=== PATIENT | male | born 1985 | race Caucasian/White ===

== ENCOUNTER 2018-08-01 22:28 | Emergency (ER) | payer BC ==
--- NOTE | 2018-08-01 22:47 | EDM.PDOC ---
ED HPI GENERAL MEDICAL PROBLEM - General Chief Complaint: Trauma Stated Complaint: NOSE AND HEAD INJURY Time Seen by Provider: 08/01/18 22:29 Source of Information: Reports: Patient, Family (Father) History Limitations: Reports: Altered Mental Status - History of Present Illness INITIAL COMMENTS - FREE TEXT/NARRATIVE: According to the patient's father, who did not witness the injury, the patient was carving a piece of wood on a lathe at home, when the wood broke loose, striking the patient on his nose, around 22:00 tonight. The patient presents with blood on his face and some confusion - he is amnestic of recent events, including his recent wedding. He is otherwise uninjured. The patient does not recall when his last tetanus vaccination was. The patient's PCP is Dr. Adalid Granados. Face Pain Score (Numeric/FACES): 8 - Related Data Allergies Allergy/AdvReac Type Severity Reaction Status Date / Time No Known Allergies Allergy Verified 09/08/16 23:33 Home Meds: Home Meds . [No Known Home Meds] 09/08/16 [History] Past Medical History - Past Surgical History Musculoskeletal Surgical History: Reports: Arthroscopic Procedure (right knee) Social & Family History - Family History Family Medical History: Noncontributory - Tobacco Use Smoking Status *Q: Current Every Day Smoker Packs/Tins Daily: 0.5 - Caffeine Use Caffeine Use: Reports: Coffee - Alcohol Use Alcohol Use History: Yes Date/Time of Last Drink Comment: Alcoholic, in recovery since 2016 - Recreational Drug Use Recreational Drug Use: No - Living Situation & Occupation Living situation: Reports: , with Spouse Occupation: Employed ([employer]) Review of Systems - Review of Systems Review Of Systems: ROS reveals no pertinent complaints other than HPI. ED EXAM, GENERAL - Physical Exam Exam: See Below Exam Limited By: No Limitations General Appearance: Alert, WD/WN, No Apparent Distress Eye Exam: Bilateral Eye: EOMI, Papilledema Ears: Normal External Exam, Hearing Grossly Normal Nose: Other (There is a curvilinear superficial laceration to the superior aspect across the bridge of the patient's nose, and approximately 1 cm linear laceration running along axis of the bridge of the patient's nose. There appears to be an abrasion to the right side of the patient's nose. No nasal bone tenderness.) Throat/Mouth: Normal Teeth, Normal Gums, Normal Oropharynx, Normal Voice, No Airway Compromise, Other (There is an approximately 1 cm [id number] laceration to the center of the patient's upper lip) Head: Atraumatic, Normocephalic Neck: Normal Inspection, Supple, Non-Tender, Full Range of Motion Respiratory/Chest: No Respiratory Distress, Lungs Clear, Normal Breath Sounds, No Accessory Muscle Use Cardiovascular: Normal Peripheral Pulses, Regular Rate, Rhythm, No Edema, No Gallop, No JVD, No Murmur, No Rub Peripheral Pulses: 4+: Radial (L), Radial (R) GI/Abdominal: Normal Bowel Sounds, Soft, Non-Tender, No Organomegaly, No Distention, No Abnormal Bruit, No Mass (Male) Exam: Deferred Rectal (Males) Exam: Deferred Back Exam: Normal Inspection, Full Range of Motion, NT Extremities: Normal Inspection, Normal Range of Motion, No Pedal Edema, Normal Capillary Refill Neurological: Alert, CN II-XII Intact, No Motor/Sensory Deficits, Confused ( Perseverates questions), Memory Loss Recent Events Psychiatric: Normal Affect Skin Exam: Warm, Dry, Intact, Normal Color, No Rash ED TRAUMA PROCEDURES - Laceration/Wound Repair Middle Face Lac/Wound Length In cm: 2.0 Appearance: Subcutaneous, Irregular, Clean Distal NVT: Neuro & Vascular Intact, No Tendon Injury Anesthetic Type: Local (LET) Local Anesthesia - Lidocaine (Xylocaine): 1% with EPI Local Anesthesia - Bupivicaine (Marcaine): 0.5% Plain Local Anesthetic Volume: 2cc Skin Prep: Providone-Iodine (Betadine) Exploration/Debridement/Repair: Wound Explored, In a Bloodless Field, Explored to Base, No Foreign Material Found, Wound Margins Revised Closed With: Sutures Suture Size: 2-0 # of Sutures: 4 Suture Type: Prolene, Interrupted, Simple Drain Placement: No Sterile Dressing Applied: None Tetanus Status Addressed: Yes Complications: No Course - Vital Signs Last Recorded V/S: Last Vital Signs Temp 36.6 C 08/02/18 01:15 Pulse 93 08/02/18 01:15 Resp 17 08/02/18 01:15 BP 151/80 H 08/02/18 01:15 Pulse Ox 97 08/02/18 01:15 - Orders/Labs/Meds Orders: Active Orders 24 hr Category Date Time Status Vaccines to be Administered [RC] PER UNIT ROUTINE Care 08/02/18 01:00 Active Head wo Cont [CT] Stat Exams 08/01/18 22:38 Taken Meds: Medications Discontinued Medications Generic Name Dose Route Start Last Admin Trade Name Tayler PRN Reason Stop Dose Admin Bupivacaine HCl 10 ml 08/02/18 00:33 08/02/18 00:45 Sensorcaine-Mpf 0.5% INJECT 08/02/18 00:34 10 ml ONETIME ONE Administration Diphtheria/Tetanus/Acell Pertussis 0.5 ml 08/02/18 01:00 08/02/18 01:07 Adacel IM 08/02/18 01:01 0.5 ml .ONCE ONE Administration Ibuprofen 600 mg 08/01/18 23:37 08/01/18 23:39 Motrin PO 08/01/18 23:38 600 mg ONETIME ONE Administration Lidocaine/Epinephrine 20 ml 08/02/18 00:33 08/02/18 00:45 Xylocaine 1% With Epinephrine 1:100,000 INJECT 08/02/18 00:34 20 ml ONETIME ONE Administration Lidocaine/Tetracaine 1 ml 08/01/18 23:25 08/01/18 23:34 Let Soln TOP 08/01/18 23:26 1 ml ONETIME ONE Administration - Re-Assessments/Exams Free Text/Narrative Re-Assessment/Exam: 08/01/18 22:39 Due to the patient's altered mental status, I have ordered a CT of the patient' s head. 08/01/18 23:23 CT of head without contrast is read by [facility] as "Normal head/brain CT." 08/01/18 23:25 I have ordered topical LET, to be applied to the lacerations on the patient's nose. 08/02/18 01:12 The patient received good anesthesia to the laceration on the bridge of his nose with topical LET. 2 simple interrupted sutures were placed using 2-0 Prolene. The patient received inadequate anesthesia to the laceration on his upper lip, therefore a 50:50 admixture of lidocaine 1% with epinephrine and bupivacaine 0.5 % without epinephrine was instilled into the wound. Once adequate anesthesia was attained, 2 simple interrupted sutures were placed using 2-0 Prolene. The patient tolerated these procedures well. Topical bacitracin was applied to the abrasion on the right side of the patient' s nose. The patient will receive a tetanus vaccination during this ED visit. Clinically, the patient has a concussion. I explained to the patient's father that the patient will need to undergo brain rest over the next several days, then follow-up with his PCP, Dr. Adalid Granados, at the next available appointment. I do not want the patient of return to work until cleared by Dr. Granados. The patient's father stated that he would be able to stay with his son, to check on him. The patient can therefore be discharged home. Departure - Departure Time of Disposition: 01:16 Disposition: Home, Self-Care 01 Condition: Fair Clinical Impression: Concussion, Laceration of nose, Laceration of upper lip with complication - Discharge Information *PRESCRIPTION DRUG MONITORING PROGRAM REVIEWED*: Not Applicable *COPY OF PRESCRIPTION DRUG MONITORING REPORT IN PATIENT NEREIDA: Not Applicable Instructions: Laceration Care, Adult, Concussion, Adult Referrals: Adalid Granados Jr, MD [Ordering Only Provider] - Forms: ED Department Discharge Additional Instructions: Jac was seen in the emergency room after a piece of wood came loose from a lathe and struck him in the face. Workup in the ER included a CT scan of his head, which was normal. Lacerations to the bridge of his nose and upper lip were sutured with a total of 4 sutures. Jac will need to keep the wounds clean with ordinary soap and water when he bathes. He should pat the wounds dry, then leave alone. They do not need to be covered with a Band-Aid. The abrasion to the right side of his nose should have a thin smear of bacitracin applied to it daily. The sutures should be ready for removal on 08/12/2018. This can be done at a walk-in clinic, by a nurse at Dr. Granados's office, or in the ER. We do not recommend that they be removed by a non-medically trained person. Clinically, Jac has a concussion. Current guidelines recommend that he be given brain rest for the next few days. This means that he should sleep as much as possible in a dark, quiet place, with minimal stimulation. This means no reading, no cell phones, no television, and no visitors. He does not need to be woken up, however, someone should be available to check on him every few hours. If his neurologic condition declines, he should be brought back to the ER for reevaluation. Jac should follow-up with his PCP, Dr. Adalid Granados, at the next available appointment. He should not return to work until cleared to do so by Dr. Granados. - My Orders Last 24 Hours: My Active Orders 08/01/18 22:38 Head wo Cont [CT] Stat 08/02/18 01:00 Vaccines to be Administered [RC] PER UNIT ROUTINE - Assessment/Plan Last 24 Hours: My Active Orders 08/01/18 22:38 Head wo Cont [CT] Stat 08/02/18 01:00 Vaccines to be Administered [RC] PER UNIT ROUTINE
[2018-08-01] MEDS ORDERED: Lidocaine/EPINEPHrine/Tetracaine Soln 1 ML TOP ONE (23:25)
[2018-08-01] MEDS ORDERED: Ibuprofen 600 MG Tab PO ONE (23:37)
[2018-08-02] MEDS ORDERED: Lidocaine 1% with EPINEPHrine 1:100,000 20 ML MDV INJECT ONE (00:33)
[2018-08-02] MEDS ORDERED: Bupivacaine 0.5% 10 ML SDV INJECT ONE (00:33)
[2018-08-02] MEDS ORDERED: Diphtheria,Pertussis(Acell),Tetanus Vaccine 0.5 ML SDV IM ONE (01:00)
[2018-08-02 01:16] VITALS: BP 151/80
--- NOTE | 2018-08-03 07:13 | CT ---
Head CT Technique: Multiple axial sections through the brain were obtained. Intravenous contrast was not utilized. Comparison: No previous intracranial imaging. Findings: Ventricles along with basal cisterns and sulci over the convexities are within normal limits for the patient's age. No abnormal parenchymal densities are seen. No evidence of intracranial hemorrhage. No midline shift or mass effect is seen. Bone window settings were reviewed which show the visualized sinuses to appear clear. No acute calvarial abnormality is seen. Impression: 1. Nothing acute is appreciated on noncontrast head CT study. Diagnostic code #1 I agree with preliminary report from [facility], finalized on 08/02/18, 12:15 AM Central Time
== END 2018-08-02 01:41 | disposition home or self-care (01) ==
LOC: JD.ED 22:28
DX: S06.0X9A Concussion with loss of consciousness of unspecified duration, initial encounter (principal); S01.21XA Laceration without foreign body of nose, initial encounter; S01.511A Laceration without foreign body of lip, initial encounter; F17.210 Nicotine dependence, cigarettes, uncomplicated; Z23 Encounter for immunization; W22.8XXA Striking against or struck by other objects, initial encounter
CPT/HCPCS: 12011; 70450; 90471; 90715; 99284; A9270; J3490

== ENCOUNTER 2019-09-18 14:02 | Emergency (ER) | payer BC ==
[2019-09-18 14:10] VITALS: BP 154/89; PULSE 70
--- NOTE | 2019-09-18 14:26 | EDM.PDOC ---
ED HPI GENERAL MEDICAL PROBLEM - General Chief Complaint: Cardiovascular Problem Stated Complaint: HIGH BP/DIZZINESS Time Seen by Provider: 09/18/19 14:04 Source of Information: Reports: Patient, Family History Limitations: Reports: No Limitations - History of Present Illness INITIAL COMMENTS - FREE TEXT/NARRATIVE: patient woke up this morning with his right arm feeling numb. He then had some mild upset stomach nauseated but no vomiting. He then felt generally weak and tired. He felt somewhat "out of it". Has a history of migraine headaches and has been doing better after some physical therapy and occipital nerve block therapies. He presents now as his symptoms seemed to gotten worse. His blood pressures been more elevated and felt more lightheaded and near faint, near syncopal. Developed sweats and he'll feeling more pale. No fevers or chills. No coughing or cold symptoms. No swallowing problems. No palpitations. No abdominal pain. No burning pain or blood in the urine. No large abida-swelling, no PE risk factors. Patient does relate but does not smoke, denies history of high blood pressure elevated cholesterol diabetes. Family history is positive for both mother and father with diabetes grandparent with heart disease Onset: Today Duration: Hour(s):, Intermittent, Waxing/Waning Location: Reports: Chest, Upper Extremity, Left Severity: Moderate Improves with: Reports: None Worsens with: Reports: None Associated Symptoms: Reports: Confusion, Diaphoresis. Denies: Chest Pain, Cough , Fever/Chills, Headaches, Loss of Appetite, Nausea/Vomiting, Shortness of Breath, Syncope - Related Data Allergies Allergy/AdvReac Type Severity Reaction Status Date / Time No Known Allergies Allergy Verified 09/18/19 14:12 Home Meds: Home Meds Zomig. 09/18/19 [History] Past Medical History - Past Health History Medical/Surgical History: Denies Medical/Surgical History - Past Surgical History Musculoskeletal Surgical History: Reports: Arthroscopic Procedure Social & Family History - Family History Family Medical History: Noncontributory - Caffeine Use Caffeine Use: Reports: Coffee - Recreational Drug Use Recreational Drug Use: No - Living Situation & Occupation Living situation: Reports: , with Spouse Occupation: Employed ([employer]) ED ROS GENERAL - Review of Systems Review Of Systems: See Below Constitutional: Reports: Diaphoresis, Decreased Appetite. Denies: Fever, Chills HEENT: Reports: Vision Change. Denies: Ear Discharge Respiratory: Denies: Shortness of Breath, Pleuritic Chest Pain, Cough Cardiovascular: Reports: Blood Pressure Problem, Lightheadedness. Denies: Chest Pain, Dyspnea on Exertion, Orthopnea, PND, Syncope Endocrine: Reports: Fatigue GI/Abdominal: Reports: Nausea. Denies: Abdominal Pain, Diarrhea, Vomiting : Denies: Dysuria, Hematuria, Incontinence Musculoskeletal: Denies: Neck Pain, Arm Pain Skin: Reports: Pallor, Diaphoresis. Denies: Cyanosis, Rash Neurological: Reports: Confusion, Dizziness, Numbness. Denies: Headache, Seizure, Trouble Speaking, Difficulty Walking, Weakness, Change in Speech, Gait Disturbance Psychiatric: Reports: No Symptoms. Denies: Agitation, Depression, Hallucinations ED EXAM, GENERAL - Physical Exam Exam: See Below Exam Limited By: No Limitations General Appearance: Alert, WD/WN, No Apparent Distress, Mild Distress Eye Exam: Bilateral Eye: EOMI, PERRL Throat/Mouth: Normal Inspection, Normal Lips, Normal Oropharynx Head: Atraumatic, Normocephalic Neck: Normal Inspection, Supple, Non-Tender, Full Range of Motion. No: Carotid Bruit, Thyromegaly Respiratory/Chest: No Respiratory Distress, Lungs Clear, Normal Breath Sounds, No Accessory Muscle Use, Chest Non-Tender Cardiovascular: Normal Peripheral Pulses, Regular Rate, Rhythm, No Edema, No Gallop, No JVD, No Murmur, No Rub GI/Abdominal: Normal Bowel Sounds, Soft, Non-Tender, No Organomegaly, No Distention, No Abnormal Bruit, No Mass Extremities: Normal Inspection, Normal Range of Motion, No Pedal Edema, Normal Capillary Refill Neurological: Alert, Oriented, CN II-XII Intact, No Motor/Sensory Deficits Skin Exam: Cool, Diaphoretic Lymphatic: No Adenopathy EKG INTERPRETATION EKG Date: 09/18/19 Time: 15:26 Rhythm: NSR EKG Interpretation Comments: essentially rate 67 FL 155 QRS is 90 daily crit 12/14/24, some baseline artifact, no acute ST changes. No acute ischemic changes. 1437 repeat EKG: sinus rhythm rate of 72 FL 172 QRS 89 QT corrected 4:15, normal EKG no acute findings. Course - Vital Signs Text/Narrative:: examination, EKG, monitoring, chest x-ray, troponin, labs, d-dimer, I presents to rule out acute coronary syndrome, seems unlikely pulmonary embolism with no risk factors, rule out blood sugar abnormality, anemia, infection or otheretiologies Last Recorded V/S: Last Vital Signs Temp 96.6 F 09/18/19 14:09 Pulse 70 09/18/19 14:09 Resp 19 09/18/19 14:09 BP 154/89 H 09/18/19 14:09 Pulse Ox 100 09/18/19 14:09 - Orders/Labs/Meds Orders: Active Orders 24 hr Category Date Time Status Cardiac Monitoring [RC] . DIRECTED Care 09/18/19 14:15 Active EKG Documentation Completion [RC] ASDIRECTED Care 09/18/19 14:12 Active EKG Documentation Completion [RC] STAT Care 09/18/19 14:31 Active Chest 1V Frontal [CR] Stat Exams 09/18/19 14:31 Taken UA W/MICROSCOPIC [URIN] Stat Lab 09/18/19 14:31 Ordered EKG 12 Lead [EK] Stat Ther 09/18/19 14:12 Ordered Labs: Laboratory Tests 09/18/19 09/18/19 09/18/19 Range/Units 14:10 14:10 14:10 WBC 6.19 (4.23-9.07) K/mm3 RBC 5.46 (4.63-6.08) M/mm3 Hgb 14.9 (13.7-17.5) gm/dl Hct 45.1 (40.1-51.0) % MCV 82.6 (79.0-92.2) fl MCH 27.3 (25.7-32.2) pg MCHC 33.0 (32.2-35.5) g/dl RDW Std Deviation 42.2 (35.1-43.9) fL Plt Count 294 (163-337) K/mm3 MPV 10.4 (9.4-12.3) fl Neutrophils % (Manual) 68 H (40-60) % Band Neutrophils % 0 (0-10) % Lymphocytes % (Manual) 29 (20-40) % Atypical Lymphs % 0 % Monocytes % (Manual) 0 L (2-10) % Eosinophils % (Manual) 2 (0.8-7.0) % Basophils % (Manual) 1 (0.2-1.2) Platelet Estimate Adequate RBC Morph Comment Normal D-Dimer, Quantitative (0.19-0.50) mg/L Sodium 145 (136-145) mEq/L Potassium 3.8 (3.5-5.1) mEq/L Chloride 106 (98-107) mEq/L Carbon Dioxide 28 (21-32) mEq/L Anion Gap 14.8 (5-15) BUN 11 (7-18) mg/dL Creatinine 1.1 (0.7-1.3) mg/dL Est Cr Clr Drug Dosing 102.88 mL/min Estimated GFR (MDRD) > 60 (>60) mL/min BUN/Creatinine Ratio 10.0 L (14-18) Glucose 78 (74-106) mg/dL Calcium 9.0 (8.5-10.1) mg/dL Total Bilirubin 0.3 (0.2-1.0) mg/dL AST 24 (15-37) U/L ALT 60 (16-63) U/L Alkaline Phosphatase 71 (46-116) U/L Troponin I < 0.017 (0.00-0.056) ng/mL NT-Pro-B Natriuret Pep 11 (0-125) pg/mL Total Protein 8.2 (6.4-8.2) g/dl Albumin 4.4 (3.4-5.0) g/dl Globulin 3.8 gm/dL Albumin/Globulin Ratio 1.2 (1-2) 09/18/19 Range/Units 14:10 WBC (4.23-9.07) K/mm3 RBC (4.63-6.08) M/mm3 Hgb (13.7-17.5) gm/dl Hct (40.1-51.0) % MCV (79.0-92.2) fl MCH (25.7-32.2) pg MCHC (32.2-35.5) g/dl RDW Std Deviation (35.1-43.9) fL Plt Count (163-337) K/mm3 MPV (9.4-12.3) fl Neutrophils % (Manual) (40-60) % Band Neutrophils % (0-10) % Lymphocytes % (Manual) (20-40) % Atypical Lymphs % % Monocytes % (Manual) (2-10) % Eosinophils % (Manual) (0.8-7.0) % Basophils % (Manual) (0.2-1.2) Platelet Estimate RBC Morph Comment D-Dimer, Quantitative < 0.19 L (0.19-0.50) mg/L Sodium (136-145) mEq/L Potassium (3.5-5.1) mEq/L Chloride (98-107) mEq/L Carbon Dioxide (21-32) mEq/L Anion Gap (5-15) BUN (7-18) mg/dL Creatinine (0.7-1.3) mg/dL Est Cr Clr Drug Dosing mL/min Estimated GFR (MDRD) (>60) mL/min BUN/Creatinine Ratio (14-18) Glucose (74-106) mg/dL Calcium (8.5-10.1) mg/dL Total Bilirubin (0.2-1.0) mg/dL AST (15-37) U/L ALT (16-63) U/L Alkaline Phosphatase (46-116) U/L Troponin I (0.00-0.056) ng/mL NT-Pro-B Natriuret Pep (0-125) pg/mL Total Protein (6.4-8.2) g/dl Albumin (3.4-5.0) g/dl Globulin gm/dL Albumin/Globulin Ratio (1-2) Meds: Medications Discontinued Medications Generic Name Dose Route Start Last Admin Trade Name Freq PRN Reason Stop Dose Admin Sodium Chloride 500 mls @ 500 mls/hr 09/18/19 14:33 09/18/19 14:38 Normal Saline IV 09/18/19 15:32 500 mls/hr .BOLUS ONE Administration - Radiology Interpretation Free Text/Narrative:: chest x-ray shows normal cardiac silhouette, no pleural effusion, no infiltrate , no acute findings - Re-Assessments/Exams Free Text/Narrative Re-Assessment/Exam: 09/18/19 15:30 patient resting comfortably, no more diaphoresis or pale appearance. No symptoms at present. Repeat EKG was normal, chest x-ray is normal, troponin negative, chemistry panel so far negative. Free Text/Narrative Re-Assessment/Exam: 09/18/19 16:28 patient is doing well, d-dier negative no risk factors doubt PE, blood pressure running about 130/85, do not feel it is any indication for starting any bloessure medication although there is a high blood pressure history in the family and recommend that he follow up with his primary care doctor Darwin. May be some orthostasis and was given some IV fluids and his coloris much improved. Wonder whether he may have had similar reaction from the meal he ate. He ate Capt. crunch with cream and not long after symptoms some of the symptoms started to occur. We'll recommend patient follow-up, given return precautions. Departure - Departure Time of Disposition: 16:29 Disposition: Home, Self-Care 01 Condition: Good Clinical Impression: Lightheadedness, Elevated blood pressure reading Instructions: Dizziness, [id number], How to Take Your Blood Pressure Referrals: Adalid Granados Jr, MD [Primary Care Provider] - Forms: ED Department Discharge Additional Instructions: follow-up with Dr. Granados this coming week. Avoid excessive salt intake, avoid excessive sugar in your diet. Return if any chest pain, shortness of breath, recurrent dizziness, feeling faint or lightheaded or having sweats and weakness. - My Orders Last 24 Hours: My Active Orders 09/18/19 14:12 EKG Documentation Completion [RC] ASDIRECTED EKG 12 Lead [EK] Stat 09/18/19 14:15 Cardiac Monitoring [RC] . DIRECTED 09/18/19 14:31 EKG Documentation Completion [RC] STAT Chest 1V Frontal [CR] Stat UA W/MICROSCOPIC [URIN] Stat - Assessment/Plan Last 24 Hours: My Active Orders 09/18/19 14:12 EKG Documentation Completion [RC] ASDIRECTED EKG 12 Lead [EK] Stat 09/18/19 14:15 Cardiac Monitoring [RC] . DIRECTED 09/18/19 14:31 EKG Documentation Completion [RC] STAT Chest 1V Frontal [CR] Stat UA W/MICROSCOPIC [URIN] Stat
[2019-09-18] MEDS ORDERED: Sodium Chloride 0.9% 500 ML IV ONE (14:33)
--- NOTE | 2019-09-19 16:01 | CR ---
Chest: Portable view of the chest was obtained. Comparison: No prior chest x-ray. Heart size and mediastinum are normal. Lungs are clear. Bony structures are grossly intact. Impression: 1. Nothing acute is seen on portable chest x-ray. Diagnostic code #1
== END 2019-09-18 16:39 | disposition home or self-care (01) ==
LOC: JD.ED 14:02
DX: R42 Dizziness and giddiness (principal); R03.0 Elevated blood-pressure reading, without diagnosis of hypertension
CPT/HCPCS: 36415; 71045; 80053; 83880; 84484; 85007; 85027; 85379; 93005; 96360; 99284; J7040; 93010

== ENCOUNTER 2021-12-12 13:07 | Emergency (ER) | payer BC ==
[2021-12-12 13:51] VITALS: BP 156/89; PULSE 87
== END 2021-12-12 14:40 | disposition home or self-care (01) ==
LOC: JD.ED 13:07
DX: F28 Other psychotic disorder not due to a substance or known physiological condition (principal); Z87.891 Personal history of nicotine dependence
CPT/HCPCS: 99282; 99283

== ENCOUNTER 2023-12-24 22:24 | Emergency (ER) | payer BC ==
[2023-12-24] MEDS: diphenhydrAMINE 50 MG/ML SDV IM ONE (23:27)
[2023-12-24] MEDS: methylPREDNISolone Sodium Succinate 125 MG/2 ML SDV IM ONE (23:27)
[2023-12-24] MEDS: Famotidine 10 MG Tab PO ONE (23:28)
[2023-12-24] MEDS: Triamcinolone Acetonide 0.1% Crm 15 GM Tube TOP ONE (23:30)
[2023-12-25 00:45] VITALS: BP 143/87; PULSE 76
== END 2023-12-25 00:05 | disposition home or self-care (01) ==
LOC: JD.ED 22:24
DX: L56.8 Other specified acute skin changes due to ultraviolet radiation (principal); Z79.899 Other long term (current) drug therapy
CPT/HCPCS: 96372; 99282; A9270; J1200; J2930